=== PATIENT | male | born 1965 | race Caucasian/White ===

== ENCOUNTER 2017-12-27 11:18 | Inpatient (IN) | payer OTHER ==
[~2017-12-27] VITALS: Ht 172.7 cm; Wt 102.5 kg
[~2017-12-27 11:18] MED LIST: CIPRO500 MG; FLAGYL375 MG PO; PEPCID40 MG PO; TRAMADOL HCL50 MG; ZOFRAN8 MG PO
[2017-12-27] MEDS ORDERED: LOSARTAN-HCTZ1 EACH (11:52)
[2017-12-27] MEDS ORDERED: NORVASC5 MG (11:53)
[2017-12-30] MEDS ORDERED: CIPRO500 MG PO (07:25)
[2017-12-30] MEDS ORDERED: NORVASC5 MG PO (07:25)
[2017-12-30] MEDS ORDERED: LOSARTAN-HCTZ1 EACH PO (07:25)
[2017-12-30] MEDS ORDERED: OMEPRAZOLE40 MG PO (07:25)
[2017-12-30] MEDS ORDERED: FLAGYL375 MG PO (07:25)
== END 2017-12-30 10:22 | disposition home or self-care (01) | DRG 392 ==
LOC: ER 11:18 → MEDI 17:10
PROC: 3E0F7GC Introduction of Other Therapeutic Substance into Respiratory Tract, Via Natural or Artificial Opening (ICD-10-PCS; principal; 2017-12-27)
PROC: BW21ZZZ Computerized Tomography (CT Scan) of Abdomen and Pelvis (ICD-10-PCS; 2017-12-27)
DX: K57.32 Diverticulitis of large intestine without perforation or abscess without bleeding (principal); K29.60 Other gastritis without bleeding; N20.0 Calculus of kidney

== ENCOUNTER 2021-12-18 22:42 | Emergency (ER) | payer OTHER ==
[~2021-12-18] VITALS: Ht 172.7 cm; Wt 106.6 kg
[~2021-12-18 22:42] MED LIST changes: +CIPRO500 MG PO; +LOSARTAN-HCTZ1 EACH; +LOSARTAN-HCTZ1 EACH PO; +NORVASC5 MG; +NORVASC5 MG PO; +OMEPRAZOLE40 MG PO
[2021-12-18] MEDS ORDERED: VAZALORE81 MG (23:27)
[2021-12-18] MEDS ORDERED: METFORMIN HCL500 M3 (23:28)
[2021-12-19] MEDS ORDERED: AZITHROMYCIN500 MG PO (04:45)
[2021-12-19] MEDS ORDERED: MEDROLPACK PO (04:45)
[2021-12-19] MEDS ORDERED: MUCINEX DM ER1 EAC1 PO (04:45)
[2021-12-19] MEDS ORDERED: VITAMIN C WIT1000 MG PO (04:46)
== END 2021-12-19 05:19 | disposition home or self-care (01) ==
LOC: ER 22:42
DX: J40 Bronchitis, not specified as acute or chronic (principal); J06.9 Acute upper respiratory infection, unspecified; R05.9 Cough, unspecified; I10 Essential (primary) hypertension; Z20.822 Contact with and (suspected) exposure to COVID-19; Z88.0 Allergy status to penicillin

== ENCOUNTER 2022-08-31 11:01 | Emergency (ER) | payer OTHER ==
[~2022-08-31] VITALS: Ht 172.7 cm; Wt 108.9 kg
[~2022-08-31 11:01] MED LIST changes: +AZITHROMYCIN500 MG PO; +MEDROLPACK PO; +METFORMIN HCL500 M3; +MUCINEX DM ER1 EAC1 PO; +VAZALORE81 MG; +VITAMIN C WIT1000 MG PO
== END 2022-08-31 14:36 | disposition home or self-care (01) ==
LOC: ER 11:01
DX: B34.9 Viral infection, unspecified (principal)